=== PATIENT | female | born 1960 | race Caucasian/White ===

== ENCOUNTER 2020-09-05 12:45 | Emergency (ER) | payer OTHER ==
[2020-09-05 12:50] VITALS: BP 132/87; PULSE 68; TEMP 98.6; BMI 27.2
== END 2020-09-05 14:40 | disposition home or self-care (01) ==
LOC: FER 12:45
DX: M54.5 Low back pain (principal)
CPT/HCPCS: 81003; 81015; 87077; 87086; 99283-25

== ENCOUNTER 2022-12-27 11:27 | Emergency (ER) | payer OTHER ==
[2022-12-27 11:42] VITALS: BP 155/100; PULSE 87; RESP 18; TEMP 97.8; BMI 28.1
== END 2022-12-27 12:50 | disposition home or self-care (01) ==
LOC: FER 11:27
DX: K64.9 Unspecified hemorrhoids (principal); R19.7 Diarrhea, unspecified
CPT/HCPCS: 99282-25

== ENCOUNTER 2024-03-25 12:18 | Emergency (ER) | payer OTHER ==
[2024-03-25 12:32] VITALS: BP 138/76; PULSE 63; RESP 16; TEMP 97.5; BMI 27.8
[2024-03-25] MEDS ORDERED: MAG HYDROX/AL HYDROX/SIMETH 30 ML UNIT-DOSE CUP ONE (13:57)
[2024-03-25] MEDS: MAG HYDROX/AL HYDROX/SIMETH 30 ML UNIT-DOSE CUP PO ONE (14:00)
== END 2024-03-25 14:25 | disposition home or self-care (01) ==
LOC: FER 12:18
DX: R10.12 Left upper quadrant pain (principal)
CPT/HCPCS: 74176-TC; 81003; 87086; 93005; 99285-25